=== PATIENT | female | born 1990 | race African-American/Black ===

== ENCOUNTER 2018-12-29 20:24 | Emergency (ER) | payer OTHER ==
[~2018-12-29] VITALS: Ht 162.6 cm; Wt 86.0 kg
[2018-12-29] MEDS ORDERED: HYDROCODONE/ACETAMINOPHEN 5/325MG TABLET PO ONE (22:30)
[2018-12-30 00:19] VITALS: BP 123/86
== END 2018-12-30 00:21 | disposition home or self-care (01) ==
LOC: ER 20:24
DX: M79.621 Pain in right upper arm (principal); V43.52XA Car driver injured in collision with other type car in traffic accident, initial encounter; Y93.9 Activity, unspecified; Y92.410 Unspecified street and highway as the place of occurrence of the external cause
CPT/HCPCS: 29125; 73030; 73080; 73110; 73130; 81025; 99283; A4565

== ENCOUNTER 2023-07-02 18:34 | Emergency (ER) | payer MEDICAID, OTHER ==
[~2023-07-02] VITALS: Ht 162.6 cm; Wt 95.0 kg
[2023-07-02 18:36] VITALS: TEMP 98.5; O2SAT 100
[2023-07-02] MEDS ORDERED: KETOROLAC 60MG/2ML VIAL IM STA (20:16)
[2023-07-02] MEDS ORDERED: LIDOCAINE HCL/PF 1% 10 MG/ML 5ML VIAL INFIL ONE ×2 (20:30→21:15)
[2023-07-02] MEDS ORDERED: BACITRACIN ZINC OINT UDPKT TOP ONE (20:30)
[2023-07-02 20:47] VITALS: BP 130/73; PULSE 89; RESP 20
[2023-07-02] MEDS ORDERED: IBUP-2029 PO (21:28)
[2023-07-02] MEDS ORDERED: SULF1TAB48 MT (21:28)
[2023-07-02] MEDS ORDERED: CEPH500C2 MT (21:28)
== END 2023-07-02 22:02 | disposition home or self-care (01) ==
LOC: ER 18:34
DX: L02.31 Cutaneous abscess of buttock (principal)
CPT/HCPCS: 99283; 10060; 96372; J1885; J3490

== ENCOUNTER 2023-12-09 09:09 | Emergency (ER) | payer MEDICAID ==
[~2023-12-09] VITALS: Ht 162.6 cm; Wt 86.2 kg
[~2023-12-09 09:09] MED LIST: CEPH500C2 MT; IBUP-2029 PO; SULF1TAB48 MT
[2023-12-09 09:25] VITALS: BP 146/66; PULSE 75; RESP 16; TEMP 97.9; O2SAT 98
[2023-12-09] MEDS ORDERED: IPRATROPIUM BROMIDE (0.02%) 0.5MG/2.5ML NEB HHN STA (11:54)
[2023-12-09] MEDS ORDERED: ALBUTEROL (0.083%) 2.5MG/3ML NEB HHN STA (11:54)
[2023-12-09] MEDS: PREDNISONE 20MG TABLET PO STA (12:13)
== END 2023-12-09 18:41 ==
LOC: ER 09:09
DX: J45.909 Unspecified asthma, uncomplicated (principal); J20.9 Acute bronchitis, unspecified
CPT/HCPCS: 99283; 71045; J7512

== ENCOUNTER 2024-09-24 10:57 | Emergency (ER) | payer BC, MEDICAID ==
[~2024-09-24] VITALS: Ht 162.6 cm; Wt 100.0 kg
[2024-09-24 11:01] VITALS: O2SAT 100
[2024-09-24 11:11] VITALS: BP 119/80; PULSE 89; RESP 18; TEMP 98.2; O2SAT 99
[2024-09-24] MEDS ORDERED: CEPH500T MT (12:03)
== END 2024-09-24 12:54 | disposition home or self-care (01) ==
LOC: ER 10:57
DX: L73.9 Follicular disorder, unspecified (principal); Z98.890 Other specified postprocedural states
CPT/HCPCS: 99283